=== PATIENT | male | born 1980 | race Caucasian/White ===

== ENCOUNTER 2017-07-31 17:27 | Emergency (ER) | payer MEDICARE ==
[~2017-07-31] VITALS: Ht 185.4 cm; Wt 86.2 kg
--- NOTE | 2017-07-31 17:38 | ER Report ---
History and Physical Time Seen By MD: 17:38 Hx. of Stated Complaint: migrane since yesterday HPI/ROS CHIEF COMPLAINT: Not feeling well HISTORY OF PRESENT ILLNESS: 36-year-old male patient presents to emergency room with complaint of not feeling well. Patient states this been going on today. Patient states that he left a friend's house at 11:00 this morning. He states he is not felt well throughout the day. He states that we are not clear. One, PRABHJOT evaluated. He is concerned that he may be developing DKA. He was diagnosed with that and hospitalized back in May. He states that he is feeling proximal same way. Marcelo headache, generalized body aches, sore throat. He denies any nausea, vomiting or diarrhea. He states this been taking his medications as prescribed. He states that he is having significant amounts of pain. REVIEW OF SYSTEMS: Respiratory: No cough, no dyspnea. Cardiovascular: No chest pain, no palpitations. Gastrointestinal: No vomiting, no abdominal pain. Musculoskeletal: As noted above Allergies: Coded Allergies: hydrocodone (Verified Allergy, Intermediate, 07/31/17) morphine (Verified Allergy, Intermediate, HIVES, 07/31/17) promethazine (Verified Allergy, Intermediate, 07/31/17) Home Meds Reported Medications Trazodone Hcl (TRAZODONE HCL) 100 Mg Tablet, 100 MG PO HS Y for INSOMNIA, TAB 07/31/17 Sumatriptan Succinate (SUMATRIPTAN SUCCINATE) 6 Mg/0.5 Ml Vial, 6 MG SQ BID Y for MIGRAINE, VIAL 07/31/17 Ondansetron (ZOFRAN ODT) 4 Mg Tab.rapdis, 4 MG PO Q8H Y for NAUSEA, TAB.VANNESA 07/31/17 Hydromorphone Hcl (DILAUDID) 2 Mg Tablet, 2 MG PO Q6H Y for PAIN 07/31/17 Dronabinol (DRONABINOL) 5 Mg Capsule, 5 MG PO QID Y for PAIN, CAPSULE 07/31/17 Clonazepam (CLONAZEPAM) 1 Mg Tablet, 1 MG PO QID Y for ANXIETY, #6 TAB 07/31/17 Butalb/Acetaminophen/Caff 50-325-40 Mg (FIORICET 50-325-40) 1 Each Tablet, 1-2 TAB PO Q4H Y for MIGRAINE, #30 TAB 07/31/17 Multivitamin With Minerals (MULTIPLE VITAMIN) 1 Each Tablet, 1 EACH PO DAILY, TAB 07/31/17 Levothyroxine Sodium (LEVOTHYROXINE SODIUM) 75 Mcg Tablet, 75 MCG PO QDAY, TAB 07/31/17 Lamotrigine (LAMOTRIGINE) 25 Mg Tablet, 25 MG PO BID 07/31/17 Insulin Lispro (HUMALOG) 100 Unit/1 Ml Vial, 100 UNIT SQ TID, VIAL 07/31/17 Insulin Glargine (LANTUS) 100 Unit/Ml Soln, 45 UNIT SUBQ HS, ML 07/31/17 Fentanyl (Fentanyl) 1 Each Patch.td72, 75 MCG TD Q72H 07/31/17 Cholecalciferol (Vitamin D3) (VITAMIN D3) 1,000 Unit Tablet, 1000 UNIT PO DAILY , TAB 07/31/17 Bupropion Hcl (WELLBUTRIN SR) 150 Mg Tablet.er, 150 MG PO BID, TAB 07/31/17 Aripiprazole (ABILIFY) 5 Mg Tablet, 5 MG PO QDAY, #10 TAB 07/31/17 Apixaban (ELIQUIS) 5 Mg Tablet, 5 MG PO BID 07/31/17 Past Medical/Surgical History Patient has a past medical history of headaches, pulmonary emboli, diabetes, hypothyroidism, lupus, marijuana abuse, alcohol use, fractures of right ribs, left arm, right arm, seizures, migraines, irregular heartbeat. Patient has surgical history of ulnar nerve release. Reviewed Nurses Notes: Yes Constitutional Vital Sign - Last 24 Hours 07/31/17 07/31/17 07/31/17 07/31/17 17:33 17:33 17:42 17:57 Temp 97.9 Pulse 112 112 97 Resp 16 24 B/P (MAP) 146/102 (117) 146/102 139/92 (108) Pulse Ox 95 94 96 O2 Delivery Room Air 07/31/17 07/31/17 07/31/17 07/31/17 18:00 18:12 18:27 18:45 Pulse 97 96 83 Resp 7 12 29 B/P (MAP) 127/85 (99) 124/78 (93) Pulse Ox 93 92 86 07/31/17 07/31/17 07/31/17 07/31/17 19:00 19:15 19:30 19:45 Pulse 92 94 88 Resp 44 16 21 22 Pulse Ox 94 93 93 93 07/31/17 20:00 Pulse 86 Resp 8 B/P (MAP) 123/71 (88) Pulse Ox 96 Intake and Output 07/31/17 07/31/17 08/01/17 15:00 23:00 07:00 Intake Total 1000 ml Balance 1000 ml Physical Exam General Appearance: The patient is alert, has no immediate need for airway protection and no current signs of toxicity. ENT: Tympanic membranes are pearly-whitehead, auditory canals are patent, mucous membranes are moist. Respiratory: Chest is non tender, lungs are clear to auscultation. Cardiac: regular rate and rhythm Gastrointestinal: Abdomen is soft and non tender, no masses, bowel sounds normal. Musculoskeletal: Neck: Neck is supple and non tender. Extremities have full range of motion and are non tender. Skin: No rashes or lesions. DIFFERENTIAL DIAGNOSIS: After history and physical exam differential diagnosis was considered for influenza, diabetic ketoacidosis, hyperglycemia. Medical Decision Making Data Points Result Diagram: 07/31/17 1830 07/31/17 183 Laboratory Hematology Test 07/31/17 17:47 07/31/17 17:58 07/31/17 18:00 07/31/17 18:30 Blood Gas Puncture Site Left radial Blood Gas Patient Temperature 97.5 DEGREES Arterial Blood pH 7.32 (7.35-7.45) Arterial Blood Partial Pressure CO2 28 mmHg (32-37) Arterial Blood Partial Pressure O2 63 mmHg (60-80) Arterial Blood HCO3 15 mmol/L (20-26) Arterial Blood Oxygen Saturation 91 % (92-100) Arterial Blood Base Excess -11.0 mmol/L [place] Test Acceptable Oxygen Liters/Minute Room air Urine Color Straw Urine Clarity Clear Urine pH 5.0 pH (4.8-9.5) Urine Specific [place] 1.029 Urine Protein Negative mg/dL (NEGATIVE) Urine Glucose (UA) 500 mg/dL (NEGATIVE) Urine Ketones 80 mg/dL (NEGATIVE) Urine Blood Negative (NEGATIVE) Urine Nitrite Negative (NEGATIVE) Urine Bilirubin Negative (NEGATIVE) Urine Urobilinogen Negative mg/dL (0.2-1.9) Urine Leukocyte Esterase Negative (NEGATIVE) Urine RBC None /HPF (0-2/HPF) Urine WBC None /HPF (0-5/HPF) Urine Squamous Epithelial Cells None /LPF (</=FEW) Urine Bacteria Negative /HPF (NONE-FEW) Urine Mucus None /HPF (NONE-FEW) Influenza Type A Antigen Negative (NEGATIVE) Influenza Type B Antigen Negative (NEGATIVE) Red Blood Count 5.34 M/uL (4.00-5.60) Mean Corpuscular Volume 91.4 fL (80.0-96.0) Mean Corpuscular Hemoglobin 30.4 pg (26.0-33.0) Mean Corpuscular Hemoglobin Concent 33.3 g/dL (32.0-36.0) Red Cell Distribution Width 14.1 % (11.5-14.5) Mean Platelet Volume 7.6 fL (7.2-11.1) Neutrophils (%) (Auto) 76.7 % (39.4-72.5) Lymphocytes (%) (Auto) 18.7 % (17.6-49.6) Monocytes (%) (Auto) 3.7 % (4.1-12.4) Eosinophils (%) (Auto) 0.2 % (0.4-6.7) Basophils (%) (Auto) 0.7 % (0.3-1.4) Nucleated RBC Relative Count (auto) 0.0 /100WBC Neutrophils # (Auto) 6.3 K/uL (2.0-7.4) Lymphocytes # (Auto) 1.6 K/uL (1.3-3.6) Monocytes # (Auto) 0.3 K/uL (0.3-1.0) Eosinophils # (Auto) 0.0 K/uL (0.0-0.5) Basophils # (Auto) 0.1 K/uL (0.0-0.1) Nucleated RBC Absolute Count (auto) 0.00 K/uL Sodium Level 132 mmol/L (137-145) Potassium Level 4.6 mmol/L (3.5-5.0) Chloride Level 96 mmol/L (98-107) Carbon Dioxide Level 17 mmol/L (22-30) Blood Urea Nitrogen 11 mg/dl (9-21) Creatinine 0.80 mg/dl (0.66-1.25) Glomerular Filtration Rate Calc > 60.0 Random Glucose 391 mg/dl (75-110) Osmolality 299 mOSM/K (275-295) Calcium Level 9.5 mg/dl (8.4-10.2) Total Bilirubin 1.1 mg/dl (0.2-1.3) Aspartate Amino Transf (AST/SGOT) 28 U/L (0-35) Alanine Aminotransferase (ALT/SGPT) 36 U/L (0-56) Alkaline Phosphatase 158 U/L (0-126) Total Protein 7.9 gm/dl (6.3-8.2) Albumin 4.5 g/dl (3.5-5.0) Test 07/31/17 20:41 07/31/17 20:43 Acetone, Qualitative Small Whole Blood Glucose 286 mg/DL (75-110) Chemistry Test 07/31/17 17:47 07/31/17 17:58 07/31/17 18:00 07/31/17 18:30 Blood Gas Puncture Site Left radial Blood Gas Patient Temperature 97.5 DEGREES Arterial Blood pH 7.32 (7.35-7.45) Arterial Blood Partial Pressure CO2 28 mmHg (32-37) Arterial Blood Partial Pressure O2 63 mmHg (60-80) Arterial Blood HCO3 15 mmol/L (20-26) Arterial Blood Oxygen Saturation 91 % (92-100) Arterial Blood Base Excess -11.0 mmol/L [place] Test Acceptable Oxygen Liters/Minute Room air Urine Color Straw Urine Clarity Clear Urine pH 5.0 pH (4.8-9.5) Urine Specific [place] 1.029 Urine Protein Negative mg/dL (NEGATIVE) Urine Glucose (UA) 500 mg/dL (NEGATIVE) Urine Ketones 80 mg/dL (NEGATIVE) Urine Blood Negative (NEGATIVE) Urine Nitrite Negative (NEGATIVE) Urine Bilirubin Negative (NEGATIVE) Urine Urobilinogen Negative mg/dL (0.2-1.9) Urine Leukocyte Esterase Negative (NEGATIVE) Urine RBC None /HPF (0-2/HPF) Urine WBC None /HPF (0-5/HPF) Urine Squamous Epithelial Cells None /LPF (</=FEW) Urine Bacteria Negative /HPF (NONE-FEW) Urine Mucus None /HPF (NONE-FEW) Influenza Type A Antigen Negative (NEGATIVE) Influenza Type B Antigen Negative (NEGATIVE) White Blood Count 8.3 k/uL (4.5-11.0) Red Blood Count 5.34 M/uL (4.00-5.60) Hemoglobin 16.2 g/dL (14.0-18.0) Hematocrit 48.8 % (42.0-52.0) Mean Corpuscular Volume 91.4 fL (80.0-96.0) Mean Corpuscular Hemoglobin 30.4 pg (26.0-33.0) Mean Corpuscular Hemoglobin Concent 33.3 g/dL (32.0-36.0) Red Cell Distribution Width 14.1 % (11.5-14.5) Platelet Count 243 K/uL (150-450) Mean Platelet Volume 7.6 fL (7.2-11.1) Neutrophils (%) (Auto) 76.7 % (39.4-72.5) Lymphocytes (%) (Auto) 18.7 % (17.6-49.6) Monocytes (%) (Auto) 3.7 % (4.1-12.4) Eosinophils (%) (Auto) 0.2 % (0.4-6.7) Basophils (%) (Auto) 0.7 % (0.3-1.4) Nucleated RBC Relative Count (auto) 0.0 /100WBC Neutrophils # (Auto) 6.3 K/uL (2.0-7.4) Lymphocytes # (Auto) 1.6 K/uL (1.3-3.6) Monocytes # (Auto) 0.3 K/uL (0.3-1.0) Eosinophils # (Auto) 0.0 K/uL (0.0-0.5) Basophils # (Auto) 0.1 K/uL (0.0-0.1) Nucleated RBC Absolute Count (auto) 0.00 K/uL Glomerular Filtration Rate Calc > 60.0 Osmolality 299 mOSM/K (275-295) Calcium Level 9.5 mg/dl (8.4-10.2) Total Bilirubin 1.1 mg/dl (0.2-1.3) Aspartate Amino Transf (AST/SGOT) 28 U/L (0-35) Alanine Aminotransferase (ALT/SGPT) 36 U/L (0-56) Alkaline Phosphatase 158 U/L (0-126) Total Protein 7.9 gm/dl (6.3-8.2) Albumin 4.5 g/dl (3.5-5.0) Test 07/31/17 20:41 07/31/17 20:43 Acetone, Qualitative Small Whole Blood Glucose 286 mg/DL (75-110) Toxicology Test 07/31/17 20:41 Acetone, Qualitative Small Urinalysis Test 07/31/17 17:58 Urine Color Straw Urine Clarity Clear Urine pH 5.0 pH (4.8-9.5) Urine Specific [place] 1.029 Urine Protein Negative mg/dL (NEGATIVE) Urine Glucose (UA) 500 mg/dL (NEGATIVE) Urine Ketones 80 mg/dL (NEGATIVE) Urine Blood Negative (NEGATIVE) Urine Nitrite Negative (NEGATIVE) Urine Bilirubin Negative (NEGATIVE) Urine Urobilinogen Negative mg/dL (0.2-1.9) Urine Leukocyte Esterase Negative (NEGATIVE) Urine RBC None /HPF (0-2/HPF) Urine WBC None /HPF (0-5/HPF) Urine Squamous Epithelial Cells None /LPF (</=FEW) Urine Bacteria Negative /HPF (NONE-FEW) Urine Mucus None /HPF (NONE-FEW) EKG/Imaging Imaging CHEST PA AND LAT INDICATION: not feeling well COMPARISON: None available FINDINGS: Heart size within normal limits. There is no focal infiltrate or lobar consolidation. There is no pneumothorax or pleural effusion. IMPRESSION: 1. No acute cardiopulmonary process. Report Dictated By: Pepito Huerta at 07/31/2017 7:16 PM Report E-Signed By: Pepito Huerta at 07/31/2017 7:21 PM ED Course/Re-evaluation ED Course Patient was admitted to exam room, history of physical were obtained. Differential diagnoses were considered. On examination lungs are clear, heart is regular, abdomen soft nontender. A CBC, CMP, urinalysis, osmolality, acetone , bedside glucose, chest x-ray were done. CBC was unremarkable, CMP was also unremarkable. Urinalysis showed 80 ketones, acetone was moderate, osmolality was 299. Chest x-ray showed no acute findings. Patient received 1 L of normal saline, as well as 10 units of insulin. The blood sugar went down to 303 from 399. Patient received a second liter of normal saline as well as 8 additional units of insulin. On reexamination his blood sugar went down to 285. His acetone was repeated after the second liter. It was down to small. We will go ahead and discharge patient home. I believe that with the body aches he has a viral syndrome. I will like him follow-up with his primary care provider. He is return to emergency room if condition worsens. We will go ahead and have the patient continue to monitor his own blood sugar and continue with his normal diabetic medications. I discussed this with the patient who verbalized understanding and agreement. Decision to Disposition Date: Jul 31, 2017 Decision to Disposition Time: 21:08 Depart Departure Latest Vital Signs Vital Signs Date Time Temp Pulse Resp B/P (MAP) Pulse Ox O2 Delivery O2 Flow Rate FiO2 07/31/17 20:00 86 8 123/71 (88) 96 07/31/17 17:33 97.9 Room Air Impression: Primary Impression: Viral syndrome Additional Impression: Hyperglycemia due to type 1 diabetes mellitus Condition: Improved Disposition: HOME OR SELF-CARE Patient Instructions: Diabetic Hyperglycemia (ED), Viral Syndrome (ED) Additional Instructions: Increase fluid intake. Get plenty of rest. Follow up with your primary care provider in the next week. Continue to monitor your blood sugar frequently. Take Tylenol or Ibuprofen as needed for body aches. Return to the ER if condition worsens. Problem Qualifiers RUDOLPH GALEANA Jul 31, 2017 17:38
[2017-07-31] MEDS ORDERED: NS(*) 0.9% 1000 ML BAG 1,000 ML IV ONE ×2 (17:47→19:40)
[2017-07-31] MEDS ORDERED: KETOROLAC 30 MG/ML VIAL IVP ONE (17:50)
[2017-07-31] MEDS ORDERED: INSU HUM REG 100 U/ML(ER ONLY) 10 ML VIAL IV ONE (18:20)
[2017-07-31 18:39] LABS: PLATELET COUNT, AUTOMATED 243 K/uL (150-450)
--- NOTE | 2017-07-31 19:24 | RADIOLOGY IMAGING REPORT ---
FACILITY: [facility] PATIENT NAME: Srinivasa Luna : 1980 MR: [id number] V: [id number] EXAM DATE: ORDERING PHYSICIAN: RUDOLPH GALEANA TECHNOLOGIST: Location: [facility] [place] Patient: Srinivasa Luna : 1980 Visit/Account:[id number] Date of Sevice: 07/31/2017 CHEST PA AND LAT INDICATION: not feeling well COMPARISON: None available FINDINGS: Heart size within normal limits. There is no focal infiltrate or lobar consolidation. There is no pneumothorax or pleural effusion. IMPRESSION: 1. No acute cardiopulmonary process. Report Dictated By: Pepito Huerta at 07/31/2017 7:16 PM Report E-Signed By: Pepito Huerta at 07/31/2017 7:21 PM WSN:[id number]
[2017-07-31] MEDS ORDERED: LANI SUBQ (19:26)
[2017-07-31] MEDS ORDERED: MULT-1335 PO (19:26)
[2017-07-31] MEDS ORDERED: APIX5TAB PO (19:26)
[2017-07-31] MEDS ORDERED: DRON5CAP15 PO (19:26)
[2017-07-31] MEDS ORDERED: HYDR2TAB74 PO (19:26)
[2017-07-31] MEDS ORDERED: INSU100V24 SQ (19:26)
[2017-07-31] MEDS ORDERED: SUMA6VIA17 SQ (19:26)
[2017-07-31] MEDS ORDERED: FENT1PAT40 TD (19:26)
[2017-07-31] MEDS ORDERED: BUTA1TAB14 PO (19:26)
[2017-07-31] MEDS ORDERED: BUPR-126 PO (19:26)
[2017-07-31] MEDS ORDERED: TRAZ-163 PO (19:26)
[2017-07-31] MEDS ORDERED: CLON-303 PO (19:26)
[2017-07-31] MEDS ORDERED: LEVO75TA73 PO (19:26)
[2017-07-31] MEDS ORDERED: CHOL10005 PO (19:26)
[2017-07-31] MEDS ORDERED: ABILIF5PT PO (19:26)
[2017-07-31] MEDS ORDERED: ONDA4TAB PO (19:26)
[2017-07-31] MEDS ORDERED: LAMO25TA60 PO (19:26)
[2017-07-31] MEDS ORDERED: INSU HUM REG 100 U/ML(ER ONLY) 10 ML VIAL SUBQ ONE (19:40)
[2017-07-31 21:10] VITALS: BP 117/71
[2017-07-31] MEDS ORDERED: ONDA4TAB97 PO (22:04)
== END 2017-07-31 21:21 | disposition home or self-care (01) ==
LOC: ER 18:00
DX: E10.65 Type 1 diabetes mellitus with hyperglycemia (principal); B34.9 Viral infection, unspecified
CPT/HCPCS: 36415; 36416; 36600; 71046; 81001; 82009; 82803; 82948; 83930; 85025; 87502; 96361; 96372; 96374; 96375; 99284; A9270; J1885; J2765; J7030; Q0162; 82040; 82247; 82310; 82374; 82435; 82565; 82947; 84075; 84132; 84155; 84295; 84450; 84460; 84520; 99282; J1815; S0119

== ENCOUNTER 2017-07-31 21:59 | Emergency (ER) | payer MEDICARE ==
[~2017-07-31] VITALS: Ht 185.4 cm; Wt 86.2 kg
[~2017-07-31 21:59] MED LIST: ABILIF5PT PO; APIX5TAB PO; BUPR-126 PO; BUTA1TAB14 PO; CHOL10005 PO; CLON-303 PO; DRON5CAP15 PO; FENT1PAT40 TD; HYDR2TAB74 PO; INSU100V24 SQ; LAMO25TA60 PO; LANI SUBQ; LEVO75TA73 PO; MULT-1335 PO; ONDA4TAB PO; SUMA6VIA17 SQ; TRAZ-163 PO
[2017-07-31] MEDS ORDERED: ONDA4TAB97 PO (22:04)
--- NOTE | 2017-07-31 22:04 | ER Report ---
History and Physical Time Seen By : 22:03 HPI/ROS CHIEF COMPLAINT: Vomiting HISTORY OF PRESENT ILLNESS: Patient is a 36-year-old male who was recently discharged from the emergency department approximate 1 hour ago for evaluation of elevated blood sugar and DKA. Please see note from earlier today for specific details of that patient contact. Patient was treated appropriately with IV insulin and IV fluids his serum acetone improved from moderate to small. Immediately after his discharge the patient went to [employer] to eat and states that he has now thrown up so he returns to the emergency department for evaluation. REVIEW OF SYSTEMS: Constitutional: No fever, no chills. Eyes: No discharge. ENT: No sore throat. Cardiovascular: No chest pain, no palpitations. Respiratory: No cough, no shortness of breath. Gastrointestinal: vomiting Genitourinary: No hematuria. No dysuria Neurological: No headache. Allergies: Coded Allergies: hydrocodone (Verified Allergy, Intermediate, 07/31/17) morphine (Verified Allergy, Intermediate, HIVES, 07/31/17) promethazine (Verified Allergy, Intermediate, 07/31/17) Home Meds Reported Medications Trazodone Hcl (TRAZODONE HCL) 100 Mg Tablet, 100 MG PO HS Y for INSOMNIA, TAB 07/31/17 Sumatriptan Succinate (SUMATRIPTAN SUCCINATE) 6 Mg/0.5 Ml Vial, 6 MG SQ BID Y for MIGRAINE, VIAL 07/31/17 Ondansetron (ZOFRAN ODT) 4 Mg Tab.rapdis, 4 MG PO Q8H Y for NAUSEA, TAB.VANNESA 07/31/17 Hydromorphone Hcl (DILAUDID) 2 Mg Tablet, 2 MG PO Q6H Y for PAIN 07/31/17 Dronabinol (DRONABINOL) 5 Mg Capsule, 5 MG PO QID Y for PAIN, CAPSULE 07/31/17 Clonazepam (CLONAZEPAM) 1 Mg Tablet, 1 MG PO QID Y for ANXIETY, #6 TAB 07/31/17 Butalb/Acetaminophen/Caff 50-325-40 Mg (FIORICET 50-325-40) 1 Each Tablet, 1-2 TAB PO Q4H Y for MIGRAINE, #30 TAB 07/31/17 Multivitamin With Minerals (MULTIPLE VITAMIN) 1 Each Tablet, 1 EACH PO DAILY, TAB 07/31/17 Levothyroxine Sodium (LEVOTHYROXINE SODIUM) 75 Mcg Tablet, 75 MCG PO QDAY, TAB 07/31/17 Lamotrigine (LAMOTRIGINE) 25 Mg Tablet, 25 MG PO BID 07/31/17 Insulin Lispro (HUMALOG) 100 Unit/1 Ml Vial, 100 UNIT SQ TID, VIAL 07/31/17 Insulin Glargine (LANTUS) 100 Unit/Ml Soln, 45 UNIT SUBQ HS, ML 07/31/17 Fentanyl (Fentanyl) 1 Each Patch.td72, 75 MCG TD Q72H 07/31/17 Cholecalciferol (Vitamin D3) (VITAMIN D3) 1,000 Unit Tablet, 1000 UNIT PO DAILY , TAB 07/31/17 Bupropion Hcl (WELLBUTRIN SR) 150 Mg Tablet.er, 150 MG PO BID, TAB 07/31/17 Aripiprazole (ABILIFY) 5 Mg Tablet, 5 MG PO QDAY, #10 TAB 07/31/17 Apixaban (ELIQUIS) 5 Mg Tablet, 5 MG PO BID 07/31/17 Discontinued Scripts Ondansetron Hcl (ZOFRAN) 4 Mg Tablet, 4 MG PO Q8H for Nausea, #15 TAB 0 Refills Prov:DAYA DELACRUZ MD 07/31/17 Past Medical/Surgical History Past Medical/Surgical History Patient has a past medical history of headaches, pulmonary emboli, diabetes, hypothyroidism, lupus, marijuana abuse, alcohol use, fractures of right ribs, left arm, right arm, seizures, migraines, irregular heartbeat. Patient has surgical history of ulnar nerve release. Hx Substance Use Disorder: Yes (marajuana) Hx Alcohol Use: Yes Constitutional Vital Sign - Last 24 Hours 07/31/17 07/31/17 07/31/17 07/31/17 22:11 22:30 22:45 23:00 Temp 97.7 Pulse 108 80 92 88 Resp 14 14 B/P (MAP) 129/92 116/78 (91) Pulse Ox 100 91 89 88 O2 Delivery Room Air Room Air 07/31/17 07/31/17 07/31/17 07/31/17 23:00 23:15 23:30 23:45 Pulse 86 84 82 85 Resp 14 14 B/P (MAP) 112/73 (86) Pulse Ox 92 91 90 90 O2 Delivery Room Air Room Air 08/01/17 08/01/17 08/01/17 00:00 00:15 00:30 Pulse 81 82 Resp 14 B/P (MAP) 111/71 (84) 106/79 (88) Pulse Ox 90 92 O2 Delivery Room Air Physical Exam General Appearance: The patient is alert, has no immediate need for airway protection and no signs of toxicity. Eyes: Pupils equal and round no pallor or injection. ENT, Mouth: Mucous membranes are moist. Respiratory: There are no retractions, lungs are clear to auscultation. Cardiovascular: Regular rate and rhythm. Gastrointestinal: Abdomen is soft and non tender, no masses, bowel sounds normal. Neurological: Awake alert Skin: Warm and dry, no rashes. Musculoskeletal: Neck is supple non tender. Extremities are nontender, nonswollen and have full range of motion. Medical Decision Making Data Points Laboratory Hematology Test 07/31/17 22:24 08/01/17 00:23 Urine Color Yellow Urine Clarity Clear Urine pH 5.0 pH (4.8-9.5) Urine Specific [place] 1.042 Urine Protein Negative mg/dL (NEGATIVE) Urine Glucose (UA) 500 mg/dL (NEGATIVE) Urine Ketones 80 mg/dL (NEGATIVE) Urine Blood Negative (NEGATIVE) Urine Nitrite Negative (NEGATIVE) Urine Bilirubin Negative (NEGATIVE) Urine Urobilinogen Negative mg/dL (0.2-1.9) Urine Leukocyte Esterase Negative (NEGATIVE) Urine RBC None /HPF (0-2/HPF) Urine WBC 1 /HPF (0-5/HPF) Urine Squamous Epithelial Cells None /LPF (</=FEW) Urine Bacteria Negative /HPF (NONE-FEW) Urine Mucus None /HPF (NONE-FEW) Whole Blood Glucose 229 mg/DL (75-110) Chemistry Test 07/31/17 22:24 08/01/17 00:23 Urine Color Yellow Urine Clarity Clear Urine pH 5.0 pH (4.8-9.5) Urine Specific [place] 1.042 Urine Protein Negative mg/dL (NEGATIVE) Urine Glucose (UA) 500 mg/dL (NEGATIVE) Urine Ketones 80 mg/dL (NEGATIVE) Urine Blood Negative (NEGATIVE) Urine Nitrite Negative (NEGATIVE) Urine Bilirubin Negative (NEGATIVE) Urine Urobilinogen Negative mg/dL (0.2-1.9) Urine Leukocyte Esterase Negative (NEGATIVE) Urine RBC None /HPF (0-2/HPF) Urine WBC 1 /HPF (0-5/HPF) Urine Squamous Epithelial Cells None /LPF (</=FEW) Urine Bacteria Negative /HPF (NONE-FEW) Urine Mucus None /HPF (NONE-FEW) Whole Blood Glucose 229 mg/DL (75-110) Urinalysis Test 07/31/17 22:24 Urine Color Yellow Urine Clarity Clear Urine pH 5.0 pH (4.8-9.5) Urine Specific [place] 1.042 Urine Protein Negative mg/dL (NEGATIVE) Urine Glucose (UA) 500 mg/dL (NEGATIVE) Urine Ketones 80 mg/dL (NEGATIVE) Urine Blood Negative (NEGATIVE) Urine Nitrite Negative (NEGATIVE) Urine Bilirubin Negative (NEGATIVE) Urine Urobilinogen Negative mg/dL (0.2-1.9) Urine Leukocyte Esterase Negative (NEGATIVE) Urine RBC None /HPF (0-2/HPF) Urine WBC 1 /HPF (0-5/HPF) Urine Squamous Epithelial Cells None /LPF (</=FEW) Urine Bacteria Negative /HPF (NONE-FEW) Urine Mucus None /HPF (NONE-FEW) ED Course/Re-evaluation ED Course 07/31/2017 11:50:38 pm Patient given 10 mg of IM Reglan has not had any vomiting so far the emergency department. Repeat blood sugar after 10 units of subcutaneous insulin is not to 77. We will re-dose again with subcutaneous insulin at 6 units and recheck of the patient's status. He was given ice chips for a by mouth fluid challenge at this time. Re-evaluation 08/01/2017 12:27:16 am Patient has had no further episodes of emesis. Blood sugar is now 229. I will send the patient home with a take-home pack of Zofran and prescription for same. Decision to Disposition Date: Aug 01, 2017 Decision to Disposition Time: 00:27 Depart Departure Latest Vital Signs Vital Signs Date Time Temp Pulse Resp B/P (MAP) Pulse Ox O2 Delivery O2 Flow Rate FiO2 08/01/17 00:30 82 14 106/79 (88) 92 Room Air 07/31/17 22:11 97.7 Impression: Primary Impression: Vomiting Condition: Improved Disposition: HOME OR SELF-CARE Patient Instructions: Acute Nausea and Vomiting (DC) Problem Qualifiers Primary Impression: Vomiting Vomiting type: unspecified Vomiting Intractability: unspecified Nausea presence: unspecified Qualified Codes: R11.10 - Vomiting, unspecified DAYA DELACRUZ MD Jul 31, 2017 22:04
[2017-07-31] MEDS ORDERED: ONDANSETRON 4 MG ODT TH SL ONE (22:05)
[2017-07-31] MEDS ORDERED: ONDANSETRON 4 MG ODT TABDP SL ONE (22:10)
[2017-07-31] MEDS ORDERED: METOCLOPRAMIDE 10 MG/2 ML SDV IM ONE (22:20)
[2017-07-31] MEDS ORDERED: INSU HUM REG 100 U/ML(ER ONLY) 10 ML VIAL SUBQ ONE ×2 (22:35→23:45)
[2017-08-01 00:30] VITALS: BP 106/79
== END 2017-08-01 00:35 | disposition home or self-care (01) ==
LOC: ER 22:21
DX: R11.10 Vomiting, unspecified (principal); E10.9 Type 1 diabetes mellitus without complications
CPT/HCPCS: 36416; 81001; 82948; 96372; 99282; A9270; J2765; Q0162; J1815; S0119

== ENCOUNTER 2017-08-01 02:30 | Emergency (ER) | payer MEDICARE ==
[~2017-08-01] VITALS: Ht 185.4 cm; Wt 86.2 kg
[2017-08-01] MEDS ORDERED: NS(*) 0.9% 1000 ML BAG 1,000 ML IV ONE ×2 (02:40→07:40)
--- NOTE | 2017-08-01 02:52 | EKG ---
FACILITY: [facility] [place] PATIENT NAME: DAYA MITCHELL : [id number] MR: [id number] V: [id number] EXAM DATE: ORDERING PHYSICIAN: DAYA DELACRUZ TECHNOLOGIST: Henrique Bowens Reason : Blood Pressure : / mmHG Vent. Rate : 070 BPM Atrial Rate : 070 BPM P-R Int : 160 ms QRS Dur : 084 ms QT Int : 402 ms P-R-T Axes : 042 015 025 degrees QTc Int : 434 ms Sinus rhythm No acute appearing findings No previous ECGs available Confirmed by JJ CHURCH ([id number] on 08/01/2017 1:27:57 PM Referred By: Confirmed By:JJ CHURCH
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
[2017-08-01] MEDS ORDERED: KETOROLAC 15 MG/ML VIAL IVP ONE (03:05)
[2017-08-01 03:09] LABS: PLATELET COUNT, AUTOMATED 220 K/uL (150-450)
--- NOTE | 2017-08-01 03:49 | RADIOLOGY IMAGING REPORT ---
FACILITY: [facility] - [place] PATIENT NAME: Srinivasa Luna : 1980 MR: [id number] V: [id number] EXAM DATE: ORDERING PHYSICIAN: SRINIVASA DELACRUZ TECHNOLOGIST: Location: [facility] [place] Patient: Srinivasa Luna : 1980 Visit/Account:[id number] Date of Sevice: 08/01/[address]: Indication: Altered mental status and persistent headache. Technique: Contiguous axial sections were obtained from the base to the vertex without contrast enhan cement. One of the following dose optimization techniques was utilized in the performance of this exam: Autom ated exposure control; adjustment of the mA and/or kV according to the patient's size; or use of an i terative reconstruction technique. Specific details can be referenced in the facility's radiology CT exam operational policy. Comparison: None. Findings: There is no evidence of intra-axial or extra-axial hemorrhage. No focal areas of decreased or increased attenuation are identified. There is no evidence of mass, edema, or shift of the midline structures. The size, shape, and configuration of the ventricular system are normal. The skeletal st ructures are intact and unremarkable. The visualized paranasal sinuses and mastoid air cells are luis r. Impression: Unremarkable unenhanced head CT. Report Dictated By: Ministerio Harris MD at 08/01/2017 3:40 AM Report E-Signed By: Ministerio Harris MD at 08/01/2017 3:44 AM WSN:[id number]
[2017-08-01] MEDS ORDERED: INSU HUM REG 100 U/ML(ER ONLY) 10 ML VIAL IV ONE (07:40)
[2017-08-01] MEDS ORDERED: ONDANSETRON 4 MG/2 ML VIAL IVP ONE (07:40)
[2017-08-01] MEDS ORDERED: PANTOPRAZOLE SOD(*)40 MG VIAL 80 MG in NS(*) 0.9% 100 ML BAG 100 ML IVPB ONE (07:50)
[2017-08-01 08:37] VITALS: BP 118/86
== END 2017-08-01 08:45 | disposition short-term general hospital (02) ==
LOC: ER 02:35
DX: R45.851 Suicidal ideations (principal); F32.9 Major depressive disorder, single episode, unspecified
CPT/HCPCS: 36416; 70450; 80305; 81001; 82140; 82375; 82803; 82948; 83735; 84443; 85025; 93005; 96361; 96365; 96375; 99285; A9270; C9113; G0480; J1885; J2405; J7030; J7050; 80320; 82040; 82247; 82310; 82374; 82435; 82565; 82947; 84075; 84132; 84155; 84295; 84450; 84460; 84520; J1815

== ENCOUNTER → 2017-08-01 | Outpatient (CLI) | payer MEDICARE ==
[~2017-08-01] MED LIST changes: +ONDA4TAB97 PO
== END ==
LOC: AMB 08:25
PROVIDERS: ATTEND Nurse Practitioner
DX: R45.851 Suicidal ideations (principal); E10.65 Type 1 diabetes mellitus with hyperglycemia
CPT/HCPCS: A0425; A0426

== ENCOUNTER → 2017-08-01 | Outpatient (CLI) | payer MEDICARE | LOC: AMB 01:56 | PROVIDERS: ATTEND Nurse Practitioner | DX: G43.909 Migraine, unspecified, not intractable, without status migrainosus (principal) | CPT/HCPCS: A0425; A0427 ==